=== PATIENT | male | born 1950 | race Caucasian/White ===

== ENCOUNTER 2020-12-14 14:21 | Emergency (ER) | payer MEDICARE, OTHER ==
[~2020-12-14] VITALS: Ht 170.2 cm; Wt 90.7 kg
[2020-12-14] MEDS ORDERED: IV NORMAL SALINE 1000 ML BAG IV ONE (14:45)
[2020-12-14 15:31] LABS: *BILIRUBIN,URIN NEGATIVE (NEGATIVE); *BLOOD, URINE NEGATIVE (NEGATIVE); *CLARITY,URINE CLEAR (CLEAR); *COLOR,URINE YELLOW (YELLOW); *KETONES,URINE NEGATIVE (NEGATIVE); *UROBILINOGEN,URINE 0.2 E.U./dl (NORMAL); LEUKOCYTE ESTERASE ,URINE NEGATIVE (NEGATIVE); NITRITE, URINE NEGATIVE (NEGATIVE); UGLUCOSE NEGATIVE (NEGATIVE)
--- NOTE | 2020-12-14 15:32 | NUR ---
Patient is awake and alert with no new complaints
[2020-12-14 15:35] LABS: BASOPHILS # (AUTO) 0.1 K/uL (0.0-8.0); BASOPHILS % (AUTO) 1.1 % (0.0-2.0); CREATININE 1.1 mg/dL (0.6-1.3); EOSINOPHILS # (AUTO) 0.7 K/uL (0.0-0.7); EOSINOPHILS % (AUTO) 8.3 % (0.0-7.0); HEMATOCRIT 39.6 % (36.7-47.1); HEMOGLOBIN 13.5 g/dL (12.5-16.3); LYMPHOCYTES # (AUTO) 1.8 K/uL (20.0-40.0); LYMPHOCYTES % (AUTO) 22.7 % (20.5-51.5); MEAN CORPUSCULAR HEMOGLOBIN 29.8 uug (23.8-33.4); MEAN CORPUSCULAR HGB CONC 34 g/dL (32.5-36.3); MEAN CORPUSCULAR VOLUME 87.1 fL (73.0-96.2); MONOCYTES # (AUTO) 0.6 K/uL (2.0-10.0); MONOCYTES % (AUTO) 7.9 % (0.0-11.0); NEUTROPHILS # (AUTO) 4.9 K/uL (1.8-8.9); PLATELET COUNT (AUTO) 203 K/uL (152-348); RED BLOOD CELL COUNT(AUTO) 4.54 MIL/uL (4.06-5.63); WHITE BLOOD COUNT (AUTO) 8.1 K/uL (3.6-10.2)
[2020-12-14 15:40] LABS: BILIRUBIN,DIRECT 0.1 mg/dL (0.0-0.2); BILIRUBIN,TOTAL 0.6 mg/dL (0.2-1.0); TOTAL PROTEIN, SERUM 7.6 g/dL (6.4-8.2)
[2020-12-14] MEDS ORDERED: IOHEXOL 300MG/ML 100 ML INFUS..BTL ONE (15:56)
[2020-12-14] MEDS ORDERED: SWABABLE VALVE TRANSFER SET EA MC ONE (15:56)
[2020-12-14] MEDS ORDERED: IV NORMAL SALINE 250 ML IV ONE (15:56)
[2020-12-14] MEDS ORDERED: POTASSIUM CHLORIDE 20 MEQ TAB.PRT.SR PO ONE (16:00)
[2020-12-14] MEDS ORDERED: POTASSIUM CHLORIDE 20 MEQ TAB.PRT.SR ONE (16:10)
[2020-12-14] MEDS ORDERED: PIPERACILLIN SODIUM/TAZOBACTAM 3.375 G in IV DEXTROSE 5% 50 ML IV ONE (17:30)
[2020-12-14] MEDS ORDERED: OMEP20CA15 PO (17:32)
[2020-12-14] MEDS ORDERED: LOSA50TA39 PO (17:32)
[2020-12-14] MEDS ORDERED: METR-147 PO (17:48)
[2020-12-14] MEDS ORDERED: CIPR500T5 PO (17:48)
[2020-12-14] MEDS ORDERED: PIPERACILLIN/TAZOBACTAM/D5W 50 ML IV ONE (17:58)
--- NOTE | 2020-12-14 18:28 | NUR ---
DR VERDE SPOKE TO PATIENT ABOUT DANGERS OF LEAVING HOSPITAL AMA. PATIENT STATES HE UNDERSTANDS ALL THE RISKS AND ACCEPTS THEM AND HE WILL CALL EMS IF HE FEELS ANYTHING UNSUAL BUT FEELS "I WILL PASS IT".
--- NOTE | 2020-12-14 18:29 | NUR ---
IV removed. Catheter intact and site benign. Pressure and 4x4 gauze applied to site. No bleeding noted.
--- NOTE | 2020-12-14 18:29 | NUR ---
DC AND FOLLOW UP INSTRUCTIONS GIVEN AND EXPLAINED TO PATIENT (INCLUDING RISKS OF LEAVING AMA) AND PATIENT STATES HE UNDERSTANDS ALL INSTRUCTIONS
[2020-12-14 18:31] VITALS: BP 131/79
== END 2020-12-14 18:31 | disposition left against medical advice (07) ==
LOC: ER 14:21
DX: K57.32 Diverticulitis of large intestine without perforation or abscess without bleeding (principal); K56.600 Partial intestinal obstruction, unspecified as to cause; T18.3XXA Foreign body in small intestine, initial encounter; X58.XXXA Exposure to other specified factors, initial encounter; Y92.89 Other specified places as the place of occurrence of the external cause; E87.6 Hypokalemia; Z90.49 Acquired absence of other specified parts of digestive tract
CPT/HCPCS: 36415; 74177; 80048; 80076; 81003; 83690; 84484; 85025; 93005; 96361; 96365; 99291; J2543; Q9967; 70030-TC; A4663; J7030; J7050

== ENCOUNTER 2020-12-19 12:18 | Emergency (ER) | payer MEDICARE, OTHER ==
[~2020-12-19] VITALS: Ht 175.3 cm; Wt 90.7 kg
[~2020-12-19 12:18] MED LIST: CIPR500T5 PO; LOSA50TA39 PO; METR-147 PO; OMEP20CA15 PO
[2020-12-19 14:27] VITALS: BP 129/72
--- NOTE | 2020-12-19 14:27 | NUR ---
Patient discharged to home in stable condition. Written and verbal after care instructions given. Patient verbalizes understanding of instructions. Stressed follow up or return to ER for worsening s/s.
== END 2020-12-19 14:29 | disposition home or self-care (01) ==
LOC: ER 12:18
DX: T18.9XXD Foreign body of alimentary tract, part unspecified, subsequent encounter (principal); Z90.49 Acquired absence of other specified parts of digestive tract
CPT/HCPCS: A4663